=== PATIENT | male | born 1990 | race Two or more races ===

== ENCOUNTER 2021-09-30 20:57 | Emergency (ER) | payer OTHER, BC ==
[~2021-09-30] VITALS: Ht 167.6 cm; Wt 86.2 kg
[2021-09-30 20:58] VITALS: BP 143/90
[2021-09-30 22:19] LABS: Basophils # (auto) 0.1 10 ^3/uL (0-0.2); Basophils % (auto) 0.9 % (0.0-2.0); Eosinophils # (auto) 0.6 10 ^3/uL (0-0.8); Eosinophils % (auto) 5.1 % (0.0-7.0); Hematocrit 43.9 % (41.0-53.0); Hemoglobin 15.4 g/dL (13.5-17.5); Lymphocytes % (auto) 16.8 % (10.0-50.0); Mean Corpuscular Hemoglobin 32.1 pg (28.0-32.0); Mean Corpuscular Hgb Conc. 35.2 g/dL (32.0-36.0); Mean Corpuscular Volume 91.3 fL (80.0-100.0); Monocytes # (auto) 0.4 10 ^3/uL (0-1.3); Monocytes % (auto) 3.6 % (0.0-12.0); Neutrophils # (auto) 8.6 10 ^3/uL (1.6-8.6); Neutrophils % (auto) 73.6 % (37.0-80.0); Nucleated Red Blood Cells % 0.1 %; Red Blood Cells 4.81 10^6/uL (4.5-5.90); Red Cell Distribution Width 13.5 % (11.8-14.3); White Blood Cell 11.6 10^3/uL (4.4-10.8)
[2021-09-30 22:40] LABS: Albumin 4.4 g/dL (3.4-5.0); Calcium 9.6 mg/dL (8.5-10.1); Potassium 4.2 mmol/L (3.5-5.1)
[2021-09-30 22:42] LABS: BUN/Creatinine Ratio 11.2
[2021-09-30 22:44] LABS: Bilirubin, Total 0.2 mg/dL (0.2-1.0); Total Protein 7.7 g/dL (6.4-8.2)
== END 2021-09-30 23:10 | disposition left against medical advice (07) ==
LOC: ER 20:57
DX: R06.02 Shortness of breath (principal); Z53.21 Procedure and treatment not carried out due to patient leaving prior to being seen by health care provider
CPT/HCPCS: 36415; 71045; 80053; 83880; 84484; 85025; 93005

== ENCOUNTER 2022-11-20 19:49 | Emergency (ER) | payer BC, OTHER ==
[~2022-11-20] VITALS: Ht 182.9 cm; Wt 82.0 kg
[2022-11-20] MEDS ORDERED: HYDROmorphone HCL 2 MG/ML VL/or syr IV ONE (22:30)
[2022-11-21] MEDS ORDERED: SODIUM CHLORIDE 0.9% 1,000 ML IV ONE (00:30)
[2022-11-21] MEDS ORDERED: ceFAZolin 1GM/50ML 50 ML IV ONE (00:30)
[2022-11-21] MEDS ORDERED: TETANUS-DIPTH-ACEL PERTUSSIS 0.5ML SYR Tdap IM ONE (00:30)
[2022-11-21] MEDS ORDERED: HYDROmorphone HCL 2 MG/ML VL/or syr IV ONE ×3 (05:15→08:00)
[2022-11-21 08:10] VITALS: BP 122/67
== END 2022-11-21 10:42 | disposition short-term general hospital (02) ==
LOC: EDBD 19:49 → ER 19:59
DX: S90.812A Abrasion, left foot, initial encounter (principal); V89.2XXA Person injured in unspecified motor-vehicle accident, traffic, initial encounter; Y93.89 Activity, other specified; Y92.411 Interstate highway as the place of occurrence of the external cause; Y99.8 Other external cause status
CPT/HCPCS: 70450; 71250; 72125; 73560; 73600; 73610; 73620; 73630; 73700; 74176; 90471; 90715; 96365; 96375; 96376; 99285; J0690; J1170; J7030

== ENCOUNTER 2023-10-09 10:03 | Emergency (ER) | payer BC, OTHER ==
[~2023-10-09] VITALS: Ht 167.6 cm; Wt 72.4 kg
[2023-10-09 10:55] VITALS: BP 138/87; PULSE 103; RESP 16; TEMP 99.5; O2SAT 95
== END 2023-10-09 11:05 | disposition home or self-care (01) ==
LOC: ER 10:03
DX: S46.911A Strain of unspecified muscle, fascia and tendon at shoulder and upper arm level, right arm, initial encounter (principal); V86.56XA Driver of dirt bike or motor/cross bike injured in nontraffic accident, initial encounter; Y93.89 Activity, other specified; Y92.89 Other specified places as the place of occurrence of the external cause; Y99.8 Other external cause status
CPT/HCPCS: 73030

== ENCOUNTER 2024-05-26 07:13 | Emergency (ER) | payer OTHER, BC ==
[~2024-05-26] VITALS: Ht 167.6 cm; Wt 70.5 kg
--- NOTE | 2024-05-26 07:43 | ED.PDOC ---
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 Allergies: Coded Allergies: NO KNOWN ALLERGIES (Unverified , 03/14/16) Home Meds Active Scripts Clonazepam (KlonoPIN TABLET) 0.5 Mg Tb, 2 TAB PO bed time for 6 Days, #30 TAB Prov:ADRIAN MONCADA MD 05/26/24 Information Source: Patient, Emergency Med Personnel Mode of Arrival: EMS Severity: Moderate Timing: Minutes, Came on: Suddenly Duration: Since onset Quality: Decreased Alertness, Confusion, Memory Loss Recent: Trauma, Other (Seizure alcohol abuse) History of: Seizure Associated Signs and Symptoms: Headache, Seizure, Slurred Speech, Other (Postictal state) Past Medical History PAST MEDICAL HISTORY: DM, High Lipids Surgical History: Hernia Repair Surgical History (Other): Cardiac ablation Family History Family History: Reviewed,noncontributory to illness Social History Smoker: Non-Smoker Alcohol: Heavy Drugs: Denies Drug Use Lives In: Home Constitutional: reports: others (Postictal state) EENTM: reports: others (Large hematoma left occipital region) Respiratory: denies: cough, hemoptysis, orthopnea, SOB at rest, shortness of breath, SOB with excertion, stridor, wheezing, others Cardiovascular: reports: syncope; denies: chest pain, dizzy spells, diaphoresis, Dyspnea on exertion, edema, irregular heart beat, left arm pain, lightheadedness, palpitations, PND, others Gastrointestinal: denies: abdomen distended, abdominal pain, blood streaked bowels, constipated, diarrhea, dysphagia, difficulty swallowing, hematemesis, melena, nausea, poor appetite, poor fluid intake, rectal bleeding, rectal pain, vomiting, others Genitourinary: denies: burning, dysuria, flank pain, frequency, hematuria, incontinence, penile discharge, penile sore, pain, testicle pain, testicle swelling, urgency, others Neurological: reports: seizure, speech problems; denies: dizziness, fainting, headache, left sided numbness, left sided weakness, numbness, paresthesia, pre- existing deficit, right sided numbness, right sided weakness, tingling, tremors, weakness, others Musculoskeletal: denies: back pain, gout, joint pain, joint swelling, muscle pain, muscle stiffness, neck pain, others Integumetry: denies: bruises, change in color, change in hair/nails, dryness, laceration, lesions, lumps, rash, wounds, others Allergic/Immunocompromised: denies: Difficulty Healing, Frequent Infections, Hives, Itching, others Hematologic/Lymphatic: denies: anemia, blood clots, easy bleeding, easy bruising, swollen glands, others Endocrine: denies: excessive hunger, excessive sweating, excessive thirst, excessive urination, flushing, intolerance to cold, intolerance to heat, unexplained weight gain, unexplained weight loss, others Psychiatric: denies: anxiety, bipolar disorder, depression, hopeless, panic disorder, schizophrenia, sleepless, suicidal, others Unable to Obtain due to: Altered Mental Status All Other Systems: Reviewed and Negative Physical Exam General Appearance: Mild Distress, Moderate Distress, Other (Postictal state with retrograde memory loss) HEENT: Head (Large scalp hematoma), Normal ENT Inspection, Pharynx Normal, TMs Normal Neck: Full Range of Motion, Non-Tender, Normal, Normal Inspection Respiratory: Chest Non-Tender, Lungs Clear, No Accessory Muscle Use, No Respiratory Distress, Normal Breath Sounds Cardiovascular: No Edema, No JVD, No Murmur, No Gallop, Normal Peripheral Pulses, Regular Rate/Rhythm Breast Exam: Deferred Gastrointestinal: No Organomegaly, Non Tender, No Pulsatile Mass, Normal Bowel Sounds, Soft Genitalia: Deferred Pelvic: Deferred Rectal: Deferred Extremities: No calf tenderness, Normal capillary refill, Normal inspection, Normal range of motion, Non-tender, No pedal edema Neurologic: Depressed Affect, Disoriented, Dizziness, Headache, Seizure, Speech Problem Cerebellar Function: NOT DONE Reflexes: NOT DONE Skin: Dry, Normal Color, Warm Peripheral Pulses: 1+ carotid (R), 1+ carotid (L) Lymphatic: No Adenopathy Was a procedure done? Was a procedure done?: No Differential Diagnosis (ALOC) Differential Diagnosis: Hypoglycemia, Seizure, Closed Head Injury, ETOH Intoxication X-Ray, Labs, Meds, VS Vital Signs Date Time Temp Pulse Resp B/P (MAP) Pulse Ox O2 Delivery O2 Flow Rate FiO2 05/26/24 14:02 89 17 159/99 (119) 95 05/26/24 12:00 94 14 148/88 (108) 98 05/26/24 12:00 96 05/26/24 10:00 94 16 146/97 (113) 98 05/26/24 08:03 20 98 Room Air* 0 21 05/26/24 08:03 91 20 146/87 (106) 95 05/26/24 08:02 88 05/26/24 07:24 98.5 112 16 129/94 (106) 96 Lab Test 05/26/24 10:07 05/26/24 07:41 Range/Units Urine Color Light-yellow Yellow Urine Clarity Clear Clear Urine pH 5.5 5.0-9.0 Urine Specific Spencer 1.020 1.001-1.035 Urine Protein 1+ H Negative Urine Ketones 2+ H Negative Urine Blood 1+ H Negative /uL Urine Nitrite Negative Negative Urine Bilirubin Negative Negative Urine Urobilinogen Normal Negative mg/dL Urine Leukocyte Esterase Negative Negative /uL Urine RBC 1 0 - 3 /hpf Urine WBC 5 0 - 3 /hpf Urine Squamous Epithelial Cells Few <5 /hpf Urine Bacteria None seen None Seen /hpf Urine Mucus Few None Seen Urine Glucose Normal Normal mg/dL Urine Opiates Screen Neg NEGATIVE Urine Fentanyl Screen Neg NEGATIVE Urine Barbiturates Screen Neg NEGATIVE Urine Phencyclidine Screen Neg NEGATIVE Urine Amphetamines Screen Neg NEGATIVE Urine Benzodiazepines Screen Neg NEGATIVE Urine Cocaine Screen Neg NEGATIVE Urine Cannabinoids Screen Neg NEGATIVE White Blood Count 5.4 4.4-10.8 10^3/uL Red Blood Count 4.37 L 4.5-5.90 10^6/uL Hemoglobin 15.8 13.5-17.5 g/dL Hematocrit 46.0 41.0-53.0 % Mean Corpuscular Volume 105.3 H 80.0-100.0 fL Mean Corpuscular Hemoglobin 36.2 H 28.0-32.0 pg Mean Corpuscular Hemoglobin Concent 34.4 32.0-36.0 g/dL Red Cell Distribution Width 13.0 11.8-14.3 % Platelet Count 97 L 140-450 10^3/uL Mean Platelet Volume 9.8 6.9-10.8 fL Neutrophils (%) (Auto) 70.9 37.0-80.0 % Lymphocytes (%) (Auto) 17.2 10.0-50.0 % Monocytes (%) (Auto) 5.7 0.0-12.0 % Eosinophils (%) (Auto) 3.6 0.0-7.0 % Basophils (%) (Auto) 2.6 H 0.0-2.0 % Neutrophils # (Auto) 3.9 1.6-8.6 10 ^3/uL Lymphocytes # (Auto) 0.9 0.4-5.4 10 ^3/uL Monocytes # (Auto) 0.3 0-1.3 10 ^3/uL Eosinophils # (Auto) 0.2 0-0.8 10 ^3/uL Basophils # (Auto) 0.1 0-0.2 10 ^3/uL Nucleated Red Blood Cells 0.2 % Platelet Estimate Adequate Giant Platelets Few Sodium Level 136 136-145 mmol/L Potassium Level 4.1 3.5-5.1 mmol/L Chloride Level 101 98-107 mmol/L Carbon Dioxide Level 21 20-31 mmol/L Anion Gap 14 5-15 Blood Urea Nitrogen 9 9-23 mg/dL Creatinine 1.04 0.700-1.30 mg/dL Glomerular Filtration Rate Calc 98 >90 mL/min BUN/Creatinine Ratio 8.7 L 10.0-20.0 Serum Glucose 168 H 74-106 mg/dL Calcium Level 10.3 8.7-10.4 mg/dL Magnesium Level 1.9 1.6-2.6 mg/dL Total Bilirubin 1.4 H 0.2-1.0 mg/dL Aspartate Amino Transferase (AST) 220 H 13-40 U/L Alanine Aminotransferase (ALT) 208 H 7-40 U/L Alkaline Phosphatase 84 46-116 U/L Total Protein 7.6 5.7-8.2 g/dL Albumin 4.9 H 3.2-4.8 g/dL Plasma/Serum Blood Alcohol < 3.0 <10 mg/dL Current Medications Medications (Trade) Dose Ordered Sig/Ok Route Start Time Stop Time Status Last Admin Lorazepam (Ativan Inj) 1 mg ONCE ONCE IV 05/26/24 07:30 05/26/24 07:31 DC 05/26/24 07:44 Sodium Chloride 1,000 ml @ 1,000 mls/hr Q1H ONCE IVB 05/26/24 07:30 05/26/24 08:29 DC 05/26/24 08:09 Acetaminophen (Tylenol Tablet) 1,000 mg ONCE ONCE PO 05/26/24 09:00 05/26/24 09:01 DC 05/26/24 09:03 Meclizine HCl (Antivert Tablet) 50 mg ONCE ONCE PO 05/26/24 13:00 05/26/24 13:01 DC 05/26/24 12:55 X-Ray, Labs, Meds, VS Comment Course in the emergency department eventful patient came in because of a seizure disorder and possible or alcohol withdrawal syndrome The CT head shows right upper parietal scalp hematoma CT of the neck is normal CBC negative except for microcytosis Platelet count 97 Urine negative UDS negative Blood alcohol negative CMP blood sugar 168 Magnesium 1.9 Liver enzymes elevated Total bilirubin 1.4 Patient has been observed for several hours you was dizzy for maybe one or 2 hours and then now is very conscious alert coherent and steady on his walk Patient will be discharged home to follow up with his PCP and possible a neurologist Time of 1ST Reevaluation: 08:00 Reevaluation 1ST: Unchanged Time of 2ND Reevaluation: 12:38 Reevaluation 2ND: Improved Consultation: PCP, Neurology Patient Education/Counseling: Diagnosis, Treatment, Prognosis, Need For Follow Up Family Education/Counseling: Diagnosis, Treatment, Prognosis, Need For Follow Up, Other (Spouse at bedside) Departure 1 Departure Time of Disposition: 13:50 Impression: Primary Impression: ETOH abuse Additional Impressions: Seizure disorder Traumatic hematoma of scalp Qualified Codes: S00.03XA - Contusion of scalp, initial encounter Vertigo Disposition: 01 HOME / SELF CARE / HOMELESS Condition: Fair Additional Instructions: Push fluids and follow up with your PCP and possibly a neurologist You need to slow down on your alcohol intake At this time CC had a seizure you can not drive until see a neurologist for clearance e-Prescriptions Clonazepam (KlonoPIN TABLET) 0.5 Mg Tb 2 TAB PO bed time for 6 Days, #30 TAB Prov: ADRIAN MONCADA MD 05/26/24 Discharged With: Self, Spouse Critical Care Note Critical Care Time?: No Stability Stability form required: No Heart Score Heart Score: Heart Score Response (Comments) Value History N/A 0 EKG N/A 0 Age <45 0 Risk Factors No known risk factors 0 Troponin N/A 0 Total 0 ADRIAN MONCADA MD May 26, 2024 07:43
[2024-05-26] MEDS: LORazepam 2MG/ML-1ML VIAL IV ONE (07:44)
[2024-05-26 07:50] LABS: Eosinophils # (auto) 0.2 10 ^3/uL (0-0.8); Hemoglobin 15.8 g/dL (13.5-17.5); Lymphocytes # (auto) 0.9 10 ^3/uL (0.4-5.4); Monocytes # (auto) 0.3 10 ^3/uL (0-1.3)
[2024-05-26 07:54] LABS: Basophils # (auto) 0.1 10 ^3/uL (0-0.2); Basophils % (auto) 2.6 % (0.0-2.0); Eosinophils % (auto) 3.6 % (0.0-7.0); Lymphocytes % (auto) 17.2 % (10.0-50.0); Mean Corpuscular Hemoglobin 36.2 pg (28.0-32.0); Mean Corpuscular Hgb Conc. 34.4 g/dL (32.0-36.0); Mean Corpuscular Volume 105.3 fL (80.0-100.0); Monocytes % (auto) 5.7 % (0.0-12.0); Neutrophils # (auto) 3.9 10 ^3/uL (1.6-8.6); Neutrophils % (auto) 70.9 % (37.0-80.0); Nucleated Red Blood Cells % 0.2 %; Platelet Count (auto) 97 10^3/uL (140-450); Red Blood Cells 4.37 10^6/uL (4.5-5.90); White Blood Cell 5.4 10^3/uL (4.4-10.8)
[2024-05-26 08:03] VITALS: RESP 20; O2SAT 98
[2024-05-26 08:07] LABS: Alkaline Phosphatase 84 U/L (46-116); Anion Gap 14 (5-15); BUN/Creatinine Ratio 8.7 (10.0-20.0); Blood Alcohol < 3.0 mg/dL (<10); Blood Urea Nitrogen 9 mg/dL (9-23); Calcium 10.3 mg/dL (8.7-10.4); Carbon Dioxide 21 mmol/L (20-31); Chloride 101 mmol/L (98-107); Magnesium 1.9 mg/dL (1.6-2.6); Potassium 4.1 mmol/L (3.5-5.1); Sodium 136 mmol/L (136-145); Total Protein 7.6 g/dL (5.7-8.2)
[2024-05-26 08:08] LABS: Alanine Aminotransferase 208 U/L (7-40); Albumin 4.9 g/dL (3.2-4.8); Aspartate Aminotransferase 220 U/L (13-40); Bilirubin, Total 1.4 mg/dL (0.2-1.0); Glucose 168 mg/dL (74-106)
[2024-05-26] MEDS: SODIUM CHLORIDE 0.9% 1,000 ML IVB ONE (08:09)
[2024-05-26 08:12] LABS: Giant Platelets Few; Platelet Estimate Adequate
--- NOTE | 2024-05-26 08:25 | DVH ---
EXAM: CT HEAD WITHOUT CONTRAST, CT CERVICAL WITHOUT CONTRAST HISTORY: fall hematoma COMPARISON: CT HEAD WITHOUT CONTRAST on DOS: 11/20/22, CT CERVICAL WITHOUT CONTRAST on DOS: 11/20/22 TECHNIQUE: Axial images were obtained and reformatted in coronal and sagittal planes. All CT scans at this medical facility are performed using dose modulation techniques as appropriate t o a performed exam including the following: Automated exposure control was utilized; adjustment of th e MA and/or KV according to patient size; and use of iterative reconstruction technique. CT Dose: CTDI volume is 20 , 61 mGy. Dose-length product is 1850 mGy*cm FINDINGS: CT brain: Supratentorial Region: No evidence for large acute territorial ischemia. No intracranial hemorrhage is noted. Posterior Fossa: No acute abnormality. Brainstem: Unremarkable. Sellar/Suprasellar Region: Unremarkable. Ventricles, Cisterns, Sulci: Age-appropriate. Orbits: Unremarkable. Paranasal Sinuses: Ethmoid sinus mucosal thickening noted. Mastoid Air Cells: Unremarkable. Vasculature: Unremarkable. Bones/Soft Tissues: No acute osseous abnormality. Right upper parietal scalp laceration with a large underlying hematoma measuring 5 cm in AP and 1 cm in thickness. Mild leftward deviation of nasal sep wesly with small left-sided nasal septal spur Other: None. CT cervical spine: Bones: IMPRESSION: CT brain: Right upper parietal scalp laceration and hematoma without underlying calvarial fracture. N o acute intracranial process. Moderate chronic paranasal sinusitis. CT cervical spine: Straightening of normal lordosis that could be positional or reflect muscle spasm or pain. No acute osseous abnormality noted.
[2024-05-26] MEDS: ACETAMINOPHEN 325 MG TAB PO ONE (09:03)
[2024-05-26 10:21] LABS: Urine Bacteria None Seen /hpf (None Seen)
[2024-05-26 10:32] LABS: Urine Blood 1+ /uL (Negative); Urine Clarity Clear (Clear); Urine Color Light-Yellow (Yellow); Urine Mucus FEW (None Seen); Urine Protein, UAD 1+ (Negative); Urine Urobilinogen Normal (Negative); Urine WBC 5 /hpf (0 - 3); Urine pH 5.5 (5.0-9.0)
[2024-05-26 10:46] LABS: Amphetamine Screen, Urine Neg (NEGATIVE); Benzodiazephine Screen, Urine Neg (NEGATIVE)
[2024-05-26 10:47] LABS: Barbiturate Scree,Urine Neg (NEGATIVE); Cocaine Screen, Urine Neg (NEGATIVE); Opiate Scree,Urine Neg (NEGATIVE); Phencyclidine Screen, Urine Neg (NEGATIVE)
[2024-05-26 10:48] LABS: Cannabinoid Screen, Urine Neg (NEGATIVE)
[2024-05-26] MEDS: MECLIZINE HCL 25 MG TAB PO ONE (12:55)
[2024-05-26] MEDS ORDERED: CLON0.5T3 PO (13:53)
[2024-05-26 14:02] VITALS: BP 159/99; PULSE 89; RESP 17; O2SAT 95
== END 2024-05-26 14:10 | disposition home or self-care (01) ==
LOC: ER 07:13 → EDBD 07:13 → ER 14:10
DX: G40.909 Epilepsy, unspecified, not intractable, without status epilepticus (principal); S00.03XA Contusion of scalp, initial encounter; R42 Dizziness and giddiness; R41.82 Altered mental status, unspecified; F10.10 Alcohol abuse, uncomplicated; E11.9 Type 2 diabetes mellitus without complications; Z98.890 Other specified postprocedural states; X58.XXXA Exposure to other specified factors, initial encounter; Y93.89 Activity, other specified; Y92.89 Other specified places as the place of occurrence of the external cause; Y99.8 Other external cause status
CPT/HCPCS: 36415; 70450; 72125; 80053; 80307; 80320; 81001; 83735; 85025; 96361; 96374; 99285; J2060; J7030; J8597

== ENCOUNTER 2024-09-01 08:33 | Inpatient (IN) | payer OTHER, BC ==
[~2024-09-01] VITALS: Ht 167.6 cm; Wt 74.0 kg
[2024-09-01] MEDS: LORazepam 2MG/ML-1ML VIAL ONE (08:02)
[~2024-09-01 08:33] MED LIST: CLON0.5T3 PO
--- NOTE | 2024-09-01 09:02 | ED.PDOC ---
History of Present Illness HPI Comments 34M BIBA w/ no prior Hx associated to the c/c of a SZ. EMS report that the pt daughter saw the pt in a syncopal episode in the car, after coming out of a liquor store, and called EMS. When EMS arrived on scene, the pt was diaphoretic, and was A/Ox4. EMS state that when the pt had a syncopal episode en rout to the ED. EMS note that the pty informed them that he had a Sz last year and has not been given or taking any medication during the time. PMHx of DM, High Lipids. SHx of Hernia Repair and Cardiac Ablation. Social Hx of heavy alcohol use, but denies tobacco and substance use. Denies chills, fever, N/V/D, SOB, CP or no other associated symptom's, modifiers, recent injuries or sick contacts at this time. Chief Complaint: Seizure Time Seen by MD: 08:30 Primary Care Provider: UNKNOWN Reviewed Notes: Nurses Notes, Insurance Salesperson Notes, Medications, Allergies Allergies: Coded Allergies: NO KNOWN ALLERGIES (Unverified , 03/14/16) Home Meds Active Scripts Clonazepam (KlonoPIN TABLET) 0.5 Mg Tb, 2 TAB PO bed time for 6 Days, #30 TAB Prov:ADRIAN MONCADA MD 05/26/24 Information Source: Patient, Emergency Med Personnel Mode of Arrival: EMS Severity: Moderate Timing: Minutes Duration: Since onset, Minutes Prehospital treatment: None Past Medical History PAST MEDICAL HISTORY: DM, High Lipids Surgical History: Hernia Repair Surgical History (Other): Cardiac Ablation Family History Family History: Reviewed,noncontributory to illness, Unknown Social History Smoker: Non-Smoker Alcohol: Heavy Drugs: Denies Drug Use Lives In: Home Constitutional: denies: chills, diaphoresis, fatigue, fever, malaise, sweats, weakness, others EENTM: denies: blurred vision, double vision, ear bleeding, ear discharge, ear drainage, ear pain, ear ringing, eye pain, eye redness, hearing loss, mouth pain, mouth swelling, nasal discharge, nose bleeding, nose congestion, nose pain, photophobia, tearing, throat pain, throat swelling, voice changes, others Respiratory: denies: cough, hemoptysis, orthopnea, SOB at rest, shortness of breath, SOB with excertion, stridor, wheezing, others Cardiovascular: reports: syncope; denies: chest pain, dizzy spells, diapho resis, Dyspnea on exertion, edema, irregular heart beat, left arm pain, lightheadedness, palpitations, PND, others Gastrointestinal: denies: abdomen distended, abdominal pain, blood streaked bowels, constipated, diarrhea, dysphagia, difficulty swallowing, hematemesis, melena, nausea, poor appetite, poor fluid intake, rectal bleeding, rectal pain, vomiting, others Genitourinary: denies: burning, dysuria, flank pain, frequency, hematuria, incontinence, penile discharge, penile sore, pain, testicle pain, testicle swelling, urgency, others Neurological: reports: seizure; denies: dizziness, fainting, headache, left sided numbness, left sided weakness, numbness, paresthesia, pre-existing deficit, right sided numbness, right sided weakness, speech problems, tingling, tremors, weakness, others Musculoskeletal: denies: back pain, gout, joint pain, joint swelling, muscle pain, muscle stiffness, neck pain, others Integumetry: denies: bruises, change in color, change in hair/nails, dryness, laceration, lesions, lumps, rash, wounds, others Allergic/Immunocompromised: denies: Difficulty Healing, Frequent Infections, Hives, Itching, others Hematologic/Lymphatic: denies: anemia, blood clots, easy bleeding, easy bruising, swollen glands, others Endocrine: denies: excessive hunger, excessive sweating, excessive thirst, excessive urination, flushing, intolerance to cold, intolerance to heat, unexplained weight gain, unexplained weight loss, others Psychiatric: denies: anxiety, bipolar disorder, depression, hopeless, panic disorder, schizophrenia, sleepless, suicidal, others All Other Systems: Reviewed and Negative Physical Exam General Appearance: Moderate Distress, Normal HEENT: Normal ENT Inspection, Pharynx Normal, TMs Normal Neck: Full Range of Motion, Non-Tender, Normal, Normal Inspection Respiratory: Chest Non-Tender, Lungs Clear, No Accessory Muscle Use, No Respiratory Distress, Normal Breath Sounds Cardiovascular: No Edema, No JVD, No Murmur, No Gallop, Normal Peripheral Pulses, Regular Rate/Rhythm Breast Exam: Deferred Gastrointestinal: No Organomegaly, Non Tender, No Pulsatile Mass, Normal Bowel Sounds, Soft Genitalia: Deferred Pelvic: Deferred Rectal: Deferred Extremities: No calf tenderness, Normal capillary refill, Normal inspection, Normal range of motion, Non-tender, No pedal edema Musculoskeletal : Apperance: Normal Neurologic: Alert, health advocate II-XII nml as Tested, No Motor Deficits, Normal Affect, Normal Mood, No Sensory Deficits Cerebellar Function: NOT DONE Reflexes: NOT DONE Skin: Dry, Normal Color, Warm Peripheral Pulses: 3+ Radial (R), 3+ Radial (L) Lymphatic: No Adenopathy Was a procedure done? Was a procedure done?: No Differential Dx Considerations may include: Alcohol abuse Electrolyte imbalance X-Ray, Labs, Meds, VS Vital Signs Date Time Temp Pulse Resp B/P (MAP) Pulse Ox O2 Delivery O2 Flow Rate FiO2 09/01/24 11:19 97.7 111 15 135/80 (98) 97 97.7 09/01/24 10:43 99 17 97 Room Air* 0 21 09/01/24 09:02 98.1 113 21 143/88 (106) 96 98.1 09/01/24 09:00 120 09/01/24 08:41 98.2 120 18 148/89 (108) 98 98.2 09/01/24 08:40 118 Lab Test 09/01/24 08:53 Range/Units White Blood Count 6.1 4.4-10.8 10^3/uL Red Blood Count 4.44 L 4.5-5.90 10^6/uL Hemoglobin 15.7 13.5-17.5 g/dL Hematocrit 46.6 41.0-53.0 % Mean Corpuscular Volume 105.0 H 80.0-100.0 fL Mean Corpuscular Hemoglobin 35.4 H 28.0-32.0 pg Mean Corpuscular Hemoglobin Concent 33.7 32.0-36.0 g/dL Red Cell Distribution Width 13.7 11.8-14.3 % Platelet Count 118 L 140-450 10^3/uL Mean Platelet Volume 10.7 6.9-10.8 fL Neutrophils (%) (Auto) 59.5 37.0-80.0 % Lymphocytes (%) (Auto) 26.7 10.0-50.0 % Monocytes (%) (Auto) 8.9 0.0-12.0 % Eosinophils (%) (Auto) 2.7 0.0-7.0 % Basophils (%) (Auto) 2.2 H 0.0-2.0 % Neutrophils # (Auto) 3.7 1.6-8.6 10 ^3/uL Lymphocytes # (Auto) 1.6 0.4-5.4 10 ^3/uL Monocytes # (Auto) 0.5 0-1.3 10 ^3/uL Eosinophils # (Auto) 0.2 0-0.8 10 ^3/uL Basophils # (Auto) 0.1 0-0.2 10 ^3/uL Nucleated Red Blood Cells 0.2 % Sodium Level 137 136-145 mmol/L Potassium Level 4.0 3.5-5.1 mmol/L Chloride Level 101 98-107 mmol/L Carbon Dioxide Level 15 L 20-31 mmol/L Anion Gap 21 H 5-15 Blood Urea Nitrogen 10 9-23 mg/dL Creatinine 1.25 0.700-1.30 mg/dL Glomerular Filtration Rate Calc 78 >90 mL/min BUN/Creatinine Ratio 8.0 L 10.0-20.0 Serum Glucose 153 H 74-106 mg/dL Calcium Level 10.1 8.7-10.4 mg/dL Plasma/Serum Blood Alcohol 4.6 <10 mg/dL Current Medications Medications (Trade) Dose Ordered Sig/Ok Route Start Time Stop Time Status Last Admin Lorazepam (Ativan Inj) 1 mg ONCE ONCE IV 09/01/24 08:45 09/01/24 08:46 DC 09/01/24 09:04 Sodium Chloride 1,000 ml @ 1,000 mls/hr Q1H ONCE IV 09/01/24 08:45 09/01/24 09:44 DC 09/01/24 09:04 Thiamine HCl 100 mg ONCE ONCE IV 09/01/24 11:30 09/01/24 11:31 DC 09/01/24 11:36 Patient alert. Status post possible seizure versus alcohol withdrawal. Vitals stable. Answering all questions. Establish intravenous access. Was given fluids. Was given thiamine. He does drink daily. Was given Ativan. Counseled patient on effects of drinking for 15 minutes. Reviewed his history. Explained to the patient. Continue cardiac monitoring. Time of 1ST Reevaluation: 09:00 Reevaluation 1ST: Unchanged Patient Education/Counseling: Diagnosis, Treatment, Prognosis Family Education/Counseling: No Family Present Departure 1 Departure Time of Disposition: 12:09 Impression: Primary Impression: Alcohol withdrawal Qualified Codes: F10.930 - Alcohol use, unspecified with withdrawal, uncomplicated Additional Impressions: ETOH abuse Seizure disorder Disposition: ADMITTED INPATIENT Admit to: Med Surg Condition: Guarded Critical Care Note Critical Care Time?: No Stability Stability form required: No Heart Score Heart Score: Heart Score Response (Comments) Value History N/A 0 EKG N/A 0 Age N/A 0 Risk Factors N/A 0 Troponin N/A 0 Total 0 I personally scribed for SANJU PURCELL MD ([email or web address]) on 09/01/24 at 09:02. Electronically submitted by Sai Mathur ([email or web address]). SANJU PURCELL MD Sep 01, 2024 09:02
[2024-09-01] MEDS: LORazepam 2MG/ML-1ML VIAL IV ONE ×2 (09:04→17:26)
[2024-09-01] MEDS: SODIUM CHLORIDE 0.9% 1,000 ML IV ONE (09:04)
[2024-09-01 09:14] LABS: Chloride 101 mmol/L (98-107); Sodium 137 mmol/L (136-145)
[2024-09-01 09:15] LABS: Anion Gap 21 (5-15)
[2024-09-01 09:16] LABS: Calcium 10.1 mg/dL (8.7-10.4)
[2024-09-01 09:21] LABS: Blood Alcohol 4.6 mg/dL (<10); Blood Urea Nitrogen 10 mg/dL (9-23)
[2024-09-01 09:24] LABS: Carbon Dioxide 15 mmol/L (20-31); Glucose 153 mg/dL (74-106)
[2024-09-01 09:27] LABS: Basophils # (auto) 0.1 10 ^3/uL (0-0.2); Lymphocytes # (auto) 1.6 10 ^3/uL (0.4-5.4); Monocytes # (auto) 0.5 10 ^3/uL (0-1.3); Monocytes % (auto) 8.9 % (0.0-12.0); Neutrophils # (auto) 3.7 10 ^3/uL (1.6-8.6); Nucleated Red Blood Cells % 0.2 %
[2024-09-01 09:29] LABS: Basophils % (auto) 2.2 % (0.0-2.0); Eosinophils # (auto) 0.2 10 ^3/uL (0-0.8); Eosinophils % (auto) 2.7 % (0.0-7.0); Hematocrit 46.6 % (41.0-53.0); Hemoglobin 15.7 g/dL (13.5-17.5); Lymphocytes % (auto) 26.7 % (10.0-50.0); Mean Corpuscular Hemoglobin 35.4 pg (28.0-32.0); Mean Corpuscular Hgb Conc. 33.7 g/dL (32.0-36.0); Neutrophils % (auto) 59.5 % (37.0-80.0); Platelet Count (auto) 118 10^3/uL (140-450); Red Blood Cells 4.44 10^6/uL (4.5-5.90); Red Cell Distribution Width 13.7 % (11.8-14.3); White Blood Cell 6.1 10^3/uL (4.4-10.8)
[2024-09-01 10:43] VITALS: PULSE 99; RESP 17; O2SAT 97
[2024-09-01] MEDS: THIAMINE 100mg/ml INJ (200mg/2ml VIAL) IV ONE (11:36)
[2024-09-01] MEDS ORDERED: LORazepam 2MG/ML-1ML VIAL IV PRN (16:30)
[2024-09-01] MEDS ORDERED: DOCUSATE SOD 100 MG CAP PO PRN (16:30)
[2024-09-01] MEDS: SODIUM CHLORIDE 0.9% 1,000 ML IVB ONE (16:30)
[2024-09-01] MEDS ORDERED: ONDANSETRON HCL 4 MG/2 ML VIAL IV PRN (16:30)
[2024-09-01] MEDS ORDERED: ACETAMINOPHEN 325 MG TAB PO PRN (16:30)
[2024-09-01] MEDS ORDERED: HYDROcodone-ACET 5/325MG TAB PO PRN (16:30)
--- NOTE | 2024-09-01 16:43 | DVHHP2 ---
History of Present Illness Reason for Visit: Seizure History of Present Illness Sai Ventura is a 34-year-old male with past medical history of ETOH dependance, who came in by EMS for seizures. Patient states he drinks about 750 ml of liquor a day. He wants to quite drinking so his last drink was 08/30/2024. He states last night he started withdrawing with tremors, anxiety, and sweating all night. He got up this morning, was taking his kids to school when he stopped at a gas station for snacks and that is the last thing he remembers until he woke up at the hospital. Per EMS his daughter called 911, patient was postictal when they arrived on scene. He had another seizure in route to the hospital. Patient states he wants to quite drinking. Past Surgical History: Appendectomy, Hernia Repair, Other (cardiac ablation, Left ACL x 2) Smoke: No ALCOHOL: heavy Drugs: None Lives: with Family Domestic Violence: Neg Review of Systems Constitutional: Yes: Sweats, Weakness; No: Fever, Chills, Malaise, Other Eyes: No: Pain, Vision change, Conjunctivae inflammation, Eyelid inflammation, Other, Redness ENT: No: Ear pain, Ear discharge, Nose pain, Nose discharge, Nose congestion, Mouth pain, Mouth swelling, Throat pain, Throat swelling, Other Respiratory: No: Cough, Dry, Shortness of breath, SOB with excertion, Wheezing, Hemoptysis, Pleuritic Pain, Sputum, Wheezing, Other Cardiovascular: No: Chest Pain, Palpitations, Orthopnea, Paroxysmal Noc. Dyspnea, Edema, Lt Headedness, Other Gastrointestinal: No: Nausea, Vomiting, Abdominal Pain, Diarrhea, Constipation, Melena, Hematochezia, Other Genitourinary: No Dysuria, No Frequency, No Incontinence, No Hematuria, No Retention, No Other Musculoskeletal: No: other, neck pain, shoulder pain, arm pain, back pain, hand pain, leg pain, foot pain Skin: No: Rash, Lesions, Jaundice, Bruising, Other Neurological: Incoordination, Seizures, Other ( tremors); No: Weakness, Numbnes s, Change in speech, Confusion Allergies: Coded Allergies: NO KNOWN ALLERGIES (Unverified , 03/14/16) Exam Vital Signs Vital Signs Date Time Temp Pulse Resp B/P (MAP) Pulse Ox O2 Delivery O2 Flow Rate FiO2 09/01/24 16:00 98 09/01/24 12:00 20 137/77 (97) 96 09/01/24 11:19 97.7 97.7 09/01/24 10:43 Room Air* 0 21 General Appearance: Alert, Oriented X3, Cooperative, moderate distress HEENT: Atraumatic, PERRLA, EOMI Respiratory: Clear to auscultation, Normal air movement Cardiovascular: Normal S1, Normal S2, Other (tachycardia) Abdominal: Normal bowel sounds, Soft, No tenderness, No hepatospenomegaly Extremities: No clubbing, No cyanosis, No edema, Normal pulses, No tenderness/swelling, Other ( tremors) Skin: No rashes, No breakdown, No significant lesion Neuro: Normal gait, Normal speech, Strength at 5/5 X4 ext, Normal tone Psych/Mental Status: Mental status NL, Mood NL Labs/Xrays Labs Test 09/01/24 08:53 Range/Units White Blood Count 6.1 4.4-10.8 10^3/uL Red Blood Count 4.44 L 4.5-5.90 10^6/uL Hemoglobin 15.7 13.5-17.5 g/dL Hematocrit 46.6 41.0-53.0 % Mean Corpuscular Volume 105.0 H 80.0-100.0 fL Mean Corpuscular Hemoglobin 35.4 H 28.0-32.0 pg Mean Corpuscular Hemoglobin Concent 33.7 32.0-36.0 g/dL Red Cell Distribution Width 13.7 11.8-14.3 % Platelet Count 118 L 140-450 10^3/uL Mean Platelet Volume 10.7 6.9-10.8 fL Neutrophils (%) (Auto) 59.5 37.0-80.0 % Lymphocytes (%) (Auto) 26.7 10.0-50.0 % Monocytes (%) (Auto) 8.9 0.0-12.0 % Eosinophils (%) (Auto) 2.7 0.0-7.0 % Basophils (%) (Auto) 2.2 H 0.0-2.0 % Neutrophils # (Auto) 3.7 1.6-8.6 10 ^3/uL Lymphocytes # (Auto) 1.6 0.4-5.4 10 ^3/uL Monocytes # (Auto) 0.5 0-1.3 10 ^3/uL Eosinophils # (Auto) 0.2 0-0.8 10 ^3/uL Basophils # (Auto) 0.1 0-0.2 10 ^3/uL Nucleated Red Blood Cells 0.2 % Sodium Level 137 136-145 mmol/L Potassium Level 4.0 3.5-5.1 mmol/L Chloride Level 101 98-107 mmol/L Carbon Dioxide Level 15 L 20-31 mmol/L Anion Gap 21 H 5-15 Blood Urea Nitrogen 10 9-23 mg/dL Creatinine 1.25 0.700-1.30 mg/dL Glomerular Filtration Rate Calc 78 >90 mL/min BUN/Creatinine Ratio 8.0 L 10.0-20.0 Serum Glucose 153 H 74-106 mg/dL Calcium Level 10.1 8.7-10.4 mg/dL Plasma/Serum Blood Alcohol 4.6 <10 mg/dL Assessment/Plan Assessment/Plan Assessment: Alcohol withdrawal, Seizures, ETOH dependance, Hyperglycemia, Plan: Admit to Med-Surg, IV hydration, Librium tapering dose, CIWA protocol, Thiamine, MVI, and Folic acid daily supplement, A1c, Social service consult, Plan discussed with: Patient My Orders Orders - RONEY DANIELLE Procedure Category Date Status Time Admit ADMIT 09/01/24 Verified 16:17 Code Status CODE 09/01/24 Verified 16:17 Hydrocodone-Acet PHA 09/01/24 Verified 5/325mg Tab ([place]vord 16:30 Ondansetron Hcl PHA 09/01/24 Verified (Zofran) 16:30 Docusate Sodium PHA 09/01/24 Verified Capsule (Colace 16:30 Complete Blood Count LAB 09/02/24 Verified 04:00 Comprehensive LAB 09/02/24 Verified Metabolic Panel 04:00 Condition: Serious NICOLE 09/01/24 Verified 16:17 Acetaminophen Tablet PHA 09/01/24 Verified (Tylenol Tablet) 16:30 Librium 50mg Po Q8hr PHA 09/01/24 Verified Day 1 16:30 Librium 50mg Po Q12hr PHA 09/02/24 Verified Day 2 10:00 Librium 25mg Po Q12hr PHA 09/03/24 Verified X Day 3 10:00 Librium 25mg Po Qam PHA 09/04/24 Verified Day 4 07:00 0.9% Nacl 1 Liter PHA 09/01/24 Verified Bolus 16:30 Thiamine 100mg Po PHA 09/02/24 Verified Daily 10:00 Folic Acid 1mg Po PHA 09/02/24 Verified Daily 10:00 Mvi Tablet Po Daily PHA 09/02/24 Verified 10:00 Ativan 1mg Iv Stat PHA 09/01/24 Verified 16:30 Ativan 1mg Iv Q6hr Atc PHA 09/01/24 Verified 16:30 Ativan 1mg Iv Q2hr Prn PHA 09/01/24 Verified 16:30 Etoh Withdrawal NICOLE 09/01/24 Verified Assessment 16:17 Etoh Withdrawal NICOLE 09/01/24 Verified Assessment 16:17 Date of Service: Sep 01, 2024 Billing Provider: RONEY DANIELLE Common Visit Codes: [id number] INP/OBS CARE (MOD) RONEY DANIELLE Sep 01, 2024 16:43
[2024-09-01] MEDS: chlordiazePOXIDE HCL 25 MG CAP PO SCH (17:26)
[2024-09-01] MEDS: LORazepam 2MG/ML-1ML VIAL IV SCH (17:27)
--- NOTE | 2024-09-01 19:03 | ECG ---
[facility] Test Date: 2024-09-01 Test Time: 08:37:26 Pat Name: WENDIE LARSON Department: ED Room: [address] [place] [address] A Gender: M Can Crimper: SURY : 1990 Requested By: SANJU PURCELL Order Number: [id number] Reading MD: Roman Fisher Measurements Intervals [place] Rate: 118 P: 75 AK: 155 QRS: 83 QRSD: 94 T: 1 QT: 318 QTc: 446 Interpretive Statements Sinus tachycardia Borderline repolarization abnormality Electronically Signed On 09-01-2024 22:44:30 PDT by Roman Fisher Please click the below link to view image of tracing.
[2024-09-01 20:00] VITALS: PULSE 76; RESP 22; O2SAT 97
[2024-09-02] VITALS (9 sets, daily range): BP systolic 128–146; BP diastolic 73–93; PULSE 0–101; RESP 17–19; TEMP 97.7–98; O2SAT 98–100
[2024-09-02 07:05] LABS: Basophils # (auto) 0.1 10 ^3/uL (0-0.2); Eosinophils # (auto) 0.3 10 ^3/uL (0-0.8); Lymphocytes # (auto) 0.9 10 ^3/uL (0.4-5.4); Monocytes # (auto) 0.6 10 ^3/uL (0-1.3); Neutrophils # (auto) 5.5 10 ^3/uL (1.6-8.6); White Blood Cell 7.4 10^3/uL (4.4-10.8)
[2024-09-02 07:08] LABS: Eosinophils % (auto) 3.6 % (0.0-7.0); Hematocrit 42.1 % (41.0-53.0); Hemoglobin 14.5 g/dL (13.5-17.5); Lymphocytes % (auto) 12.8 % (10.0-50.0); Mean Corpuscular Hemoglobin 35.5 pg (28.0-32.0); Mean Corpuscular Hgb Conc. 34.4 g/dL (32.0-36.0); Monocytes % (auto) 8.2 % (0.0-12.0); Neutrophils % (auto) 74.4 % (37.0-80.0); Red Blood Cells 4.08 10^6/uL (4.5-5.90); Red Cell Distribution Width 13.7 % (11.8-14.3)
[2024-09-02 07:14] LABS: Platelet Count (auto) 86 10^3/uL (140-450)
[2024-09-02 07:18] LABS: Albumin 4.6 g/dL (3.2-4.8); Alkaline Phosphatase 72 U/L (46-116); Anion Gap 10 (5-15); BUN/Creatinine Ratio 11.7 (10.0-20.0); Blood Urea Nitrogen 11 mg/dL (9-23); Calcium 9.5 mg/dL (8.7-10.4); Carbon Dioxide 26 mmol/L (20-31); Chloride 102 mmol/L (98-107); Potassium 3.6 mmol/L (3.5-5.1); Sodium 138 mmol/L (136-145)
[2024-09-02 07:24] LABS: Alanine Aminotransferase 181 U/L (7-40); Aspartate Aminotransferase 126 U/L (13-40); Bilirubin, Total 1.3 mg/dL (0.2-1.0); Glucose 70 mg/dL (74-106)
[2024-09-02] MEDS: THIAMINE HCL 100 MG TAB PO SCH (08:52)
[2024-09-02] MEDS: FOLIC ACID 1 MG TAB PO SCH (08:53)
[2024-09-02] MEDS: MULTIPLE VITAMIN TAB PO SCH (08:53)
[2024-09-02] MEDS: chlordiazePOXIDE HCL 25 MG CAP PO SCH (12:01)
--- NOTE | 2024-09-02 12:46 | DVHPN2 ---
Subjective The patient seen and examined at bedside. The patient still shaking a little bit but feel better. No nausea or vomiting. Reviewed: Care Plan, H&P, Labs, Medications, Previous Orders, Radiology Changes from previous H/P or p: No Changes Eyes: No Pain, No Vision change, No Conjunctivae inflammation, No Eyelid inflammation, No Other, No Redness ENT: No Ear pain, No Ear discharge, No Nose pain, No Nose discharge, No Nose congestion, No Mouth pain, No Mouth swelling, No Throat pain, No Throat swelling, No Other Cardiovascular: No Chest Pain, No Palpitations, No Orthopnea, No Paroxysmal Noc. Dyspnea, No Edema, No Lt Headedness, No Other Respiratory: No Cough, No Dry, No Shortness of breath, No SOB with excertion, No Wheezing, No Hemoptysis, No Pleuritic Pain, No Sputum, No Other Gastrointestinal: No Nausea, No Vomiting, No Abdominal Pain, No Diarrhea, No Constipation, No Melena, No Hematochezia, No Other Genitourinary: No Dysuria, No Frequency, No Incontinence, No Hematuria, No Retention, No Other Musculoskeletal: No other, No neck pain, No shoulder pain, No arm pain, No back pain, No hand pain, No leg pain, No foot pain Skin: No Rash, No Lesions, No Jaundice, No Bruising, No Other Objective Vitals Vital Signs Date Time Temp Pulse Resp B/P (MAP) Pulse Ox O2 Delivery O2 Flow Rate FiO2 09/02/24 08:30 98.0 76 17 132/93 (106) 100 98.0 09/02/24 03:45 Room Air* 0 21 Intake/Output Intake and Output 09/02/24 07:00 Intake Total 900 ml Balance 900 ml Intake Oral 900 ml # Voids 1 General Appearance: Alert, Oriented X3, Cooperative, No acute distress HEENT: Atraumatic, PERRLA, EOMI, Mucous membr. moist/pink Neck: Supple Lungs: Clear to auscultation, Normal air movement Cardiovascular: Regular rate, Normal S1, Normal S2, No murmurs, Gallops, Rubs Abdomen: Normal bowel sounds, Soft, No tenderness Neuro: Cranial nerves 3-12 NL Psych/Mental Status: Mental status NL Medications Current Medications Medications Dose Ordered Sig/Ok Route Start Time Stop Time Status Last Admin Dose Admin Acetaminophen/ Hydrocodone Bitart 1 tab Q4HP PRN PO 3/19/25 16:30 Ondansetron HCl 4 mg Q4HP PRN IV 09/01/24 16:30 Docusate Sodium 100 mg BIDPRN PRN PO 09/01/24 16:30 Acetaminophen 650 mg Q6HP PRN PO 09/01/24 16:30 Chlordiazepoxide HCl 50 mg Q12HR PO 09/02/24 10:00 09/02/24 22:01 09/02/24 12:01 50 MG Chlordiazepoxide HCl 25 mg Q12HR PO 09/03/24 10:00 09/03/24 22:01 Chlordiazepoxide HCl 25 mg QAM PO 09/04/24 07:00 09/04/24 07:01 Thiamine HCl 100 mg DAILY PO 09/02/24 10:00 09/02/24 08:52 100 MG Folic Acid 1 mg DAILY PO 09/02/24 10:00 09/02/24 08:53 1 MG Multivitamins 1 tab DAILY PO 09/02/24 10:00 09/02/24 08:53 1 TAB Lorazepam 1 mg Q6H IV 09/01/24 16:30 09/02/24 12:01 1 MG Lorazepam 1 mg Q2HPRN PRN IV 09/01/24 16:30 Laboratory Results Laboratory Tests 09/02/24 05:35 Chemistry Test 09/02/24 05:35 Albumin 4.6 g/dL (3.2-4.8) Calcium Level 9.5 mg/dL (8.7-10.4) Total Protein 7.0 g/dL (5.7-8.2) LFT Test 09/02/24 05:35 Alanine Aminotransferase (ALT) 181 U/L (7-40) H Alkaline Phosphatase 72 U/L (46-116) Aspartate Amino Transferase (AST) 126 U/L (13-40) H Total Bilirubin 1.3 mg/dL (0.2-1.0) H Labs and/or images reviewed: Labs reviewed by me Assessment/Plan Assessment/Plan Alcohol withdrawal, Seizures, ETOH dependance, Hyperglycemia, Continuing current management. Continuing with IV fluid. Continue with Librium and Ativan p.r.n. Counseled to stop drinking more than 15 minutes Continuing with multivitamin, vitamin B1, and folic acid. Discharge planning. This medical document was created using an electronic medical record system with [employer] direct computerized dictation system. Although this document has been carefully reviewed, there may still be some phonetic and typographical errors. These areas are purely typographical due to imperfections of the software programs, and do not reflect any compromise in the patient's medical care. Plan discussed with: Patient, Spouse Date of Service: Sep 02, 2024 Billing Provider: GRAHAM FRY MD Common Visit Codes: [id number] INP/OBS CARE(HIGH) GRAHAM FRY MD Sep 02, 2024 12:46
[2024-09-03 00:58] VITALS: BP 119/80; PULSE 65; RESP 20; TEMP 97.7; O2SAT 100
[2024-09-03 05:00] VITALS: BP_SYST 116; BP_SYST 122; BP_DIAS 68; BP_DIAS 72; PULSE 70; PULSE 72; RESP 18; RESP 20; TEMP 97.8; TEMP 98.3; O2SAT 100; O2SAT 96
[2024-09-03 08:05] VITALS: PULSE 79; RESP 19; O2SAT 100
[2024-09-03] MEDS: chlordiazePOXIDE HCL 25 MG CAP PO SCH (08:56)
[2024-09-03 09:00] VITALS: BP_SYST 114; BP_SYST 126; BP_DIAS 78; BP_DIAS 85; PULSE 70; PULSE 79; RESP 16; RESP 19; TEMP 97.6; TEMP 97.7; O2SAT 100; O2SAT 96
[2024-09-03] MEDS ORDERED: GABA-1250 PO (11:22)
[2024-09-03] MEDS ORDERED: LORA2TAB89 PO (11:22)
--- NOTE | 2024-09-03 11:24 | DVHDS2 ---
Discharge Summary Date of Admission Sep 01, 2024 at 16:17 Date of Discharge: Sep 03, 2024 Admitting Diagnosis Alcohol withdrawal, Seizures, ETOH dependance, Hyperglycemia, Labs/Diagnostic Data: Laboratory Results Test 09/02/24 05:35 09/01/24 08:53 White Blood Count 7.4 10^3/uL (4.4-10.8) Red Blood Count 4.08 10^6/uL (4.5-5.90) Hemoglobin 14.5 g/dL (13.5-17.5) Hematocrit 42.1 % (41.0-53.0) Mean Corpuscular Volume 103.0 fL (80.0-100.0) Mean Corpuscular Hemoglobin 35.5 pg (28.0-32.0) Mean Corpuscular Hemoglobin Concent 34.4 g/dL (32.0-36.0) Red Cell Distribution Width 13.7 % (11.8-14.3) Platelet Count 86 10^3/uL (140-450) Mean Platelet Volume 10.8 fL (6.9-10.8) Neutrophils (%) (Auto) 74.4 % (37.0-80.0) Lymphocytes (%) (Auto) 12.8 % (10.0-50.0) Monocytes (%) (Auto) 8.2 % (0.0-12.0) Eosinophils (%) (Auto) 3.6 % (0.0-7.0) Basophils (%) (Auto) 1.0 % (0.0-2.0) Neutrophils # (Auto) 5.5 10 ^3/uL (1.6-8.6) Lymphocytes # (Auto) 0.9 10 ^3/uL (0.4-5.4) Monocytes # (Auto) 0.6 10 ^3/uL (0-1.3) Eosinophils # (Auto) 0.3 10 ^3/uL (0-0.8) Basophils # (Auto) 0.1 10 ^3/uL (0-0.2) Nucleated Red Blood Cells 0.0 % Sodium Level 138 mmol/L (136-145) Potassium Level 3.6 mmol/L (3.5-5.1) Chloride Level 102 mmol/L (98-107) Carbon Dioxide Level 26 mmol/L (20-31) Anion Gap 10 (5-15) Blood Urea Nitrogen 11 mg/dL (9-23) Creatinine 0.94 mg/dL (0.700-1.30) Glomerular Filtration Rate Calc 110 mL/min (>90) BUN/Creatinine Ratio 11.7 (10.0-20.0) Serum Glucose 70 mg/dL (74-106) Calcium Level 9.5 mg/dL (8.7-10.4) Total Bilirubin 1.3 mg/dL (0.2-1.0) Aspartate Amino Transferase (AST) 126 U/L (13-40) Alanine Aminotransferase (ALT) 181 U/L (7-40) Alkaline Phosphatase 72 U/L (46-116) Total Protein 7.0 g/dL (5.7-8.2) Albumin 4.6 g/dL (3.2-4.8) Plasma/Serum Blood Alcohol 4.6 mg/dL (<10) Other Laboratory Tests 09/02/24 05:35 Brief Hx & Hospital Course: This is a 34 years old male with past medical history of alcohol abuse came to emergency department because of seizure. The patient apparently drinks 750 mL of liquor a day. He wanted to quit so his stopped drinking on 08/30/2024. The patient is started withdrawal with tremor, anxiety, sweating. So after he took his kids to school went to a gas station to buy some snack. Can not remember anything happened after that. He woke up in the hospital. Per EMS, his daughter called 911 and the patient was postictal with confused when EMS arrived at the scene. He also had another seizure EN route in the hospital. In the hospital the patient no longer had any seizure. CT head is negative for any acute process. Patient was given banana bag, IV fluids, diet was restarted. Ativan p.r.n. for seizure, Librium for detox. Today the patient is detox. His hand shaking less. Going to discharge him home. Advised him to stop drinking alcohol. Advised him to turn alcohol anonymous. Explained to the patient that alcohol can cause multiple medical problem including liver, ataxia. Even seizure. Patient verbally understand. He said he will up his alcohol. Follow up with primary care physician 1-2 weeks. Recommend outpatient detox center. Activity as tolerated. Diet per home diet Physical exam: HEENT: Normocephalic atraumatic pupils equal react to light and accommodation. Extraocular muscles intact, conjunctiva pink, oropharynx moist, no thrush, no exudate. Lymphatic: No lymphadenopathy Cardiovascular exam: S1, S2 was heard. No murmurs, rubs, gallops Lung: Clear on auscultation bilaterally, no wheeze, rale, rhonchi. GI: Abdominal soft, nondistended, nontenderness, positive bowel sounds. Extremity: No crepitus, cyanosis, edema. Pedal pulses present bilateral. Full range of motion. Skin: Normal turgor, no rash. Psych: Alert, oriented x3. Neurology: No focal deficits, cranial nerve II to XII grossly intact. This medical document was created using an electronic medical record system with [employer] direct computerized dictation system. Although this document has been carefully reviewed, there may still be some phonetic and typographical errors. These areas are purely typographical due to imperfections of the software programs, and do not reflect any compromise in the patient's medical care. Condition at Discharge: Stable Final Diagnosis/Problems List Alcohol withdrawal, Seizures, ETOH dependance, Hyperglycemia, Discharge Disposition: Home Discharge Instruct/Medications Diet: Regular Activity: No Restrictions, As Tolerated Follow Up/Referral: pcp 1-2 weeks Medications: Ativan 2mg PO q8hPRN for anxiety and alcohol withdrawal Gabapentin 300mg tid x 10 days. Discharge Statement: "Patient was advised to return to the ER or call 911 if any headaches, dizziness, shortness of breath, chest pain, abdominal pain, bleeding, fevers, or worsening of medical condition. Patient was counseled about treatment plan, medications, possible side effects, patientverbalized understanding. All questions were answered to the best of my ability. This discharge took greater then 30 minutes in planning, reviewing documentation, counseling the patient, and discussing with other team members." ASSESSMENT ASSESSMENT Assessment Etoh withdrawal with seizure Date of Service: Sep 03, 2024 Billing Provider: GRAHAM FRY MD Common Visit Codes: [id number] DISCH DAY >30min GRAHAM FRY MD Sep 03, 2024 11:24
[2024-09-03 12:15] VITALS: BP 135/88; PULSE 87; RESP 16; TEMP 98.2; O2SAT 100
[2024-09-04] MEDS ORDERED: chlordiazePOXIDE HCL 25 MG CAP PO SCH (07:00)
== END 2024-09-03 13:30 | disposition home or self-care (01) | DRG 101 ==
LOC: ER 08:33 → EDBD 08:33 → OVERFLOW 16:17 → WEST WING 09-02 03:20
PROVIDERS: ADMIT Internal Medicine; ATTEND Internal Medicine
DX: G40.909 Epilepsy, unspecified, not intractable, without status epilepticus (principal); F10.130 Alcohol abuse with withdrawal, uncomplicated; E11.65 Type 2 diabetes mellitus with hyperglycemia; F41.9 Anxiety disorder, unspecified
CPT/HCPCS: 36415; 80048; 80053; 80320; 85025; 93005; G0378